=== PATIENT | female | born 1940 | race African-American/Black ===

== ENCOUNTER 2025-08-10 10:24 | Emergency (ER) | payer BC, MEDICAID ==
[~2025-08-10] VITALS: Ht 167.6 cm; Wt 73.0 kg
[~2025-08-10 10:24] MED LIST: ASPI-1497 PO; ATOR10TA MT; GABA-534 MT
[2025-08-10 10:33] VITALS: TEMP 98.1; O2SAT 100
[2025-08-10] MEDS ORDERED: TOPUD PO (12:43)
[2025-08-10 12:58] VITALS: BP 123/84; PULSE 72; RESP 16; O2SAT 100
== END 2025-08-10 13:00 | disposition home or self-care (01) ==
LOC: ER 10:24
DX: S09.8XXA Other specified injuries of head, initial encounter (principal); Z79.899 Other long term (current) drug therapy; Z88.8 Allergy status to other drugs, medicaments and biological substances; X58.XXXA Exposure to other specified factors, initial encounter; Y93.89 Activity, other specified; Y92.009 Unspecified place in unspecified non-institutional (private) residence as the place of occurrence of the external cause; Y99.8 Other external cause status
CPT/HCPCS: 72170; 72220; 99284